=== PATIENT | female | born 1955 | race Caucasian/White ===

== ENCOUNTER → 2023-06-27 10:45 | Outpatient (REF) | payer OTHER, SELFPAY | LOC: HWWDC 10:45 | PROVIDERS: ATTENDING PHYSICIAN Family Medicine | DX: Z12.31 Encounter for screening mammogram for malignant neoplasm of breast (principal) | CPT/HCPCS: 77063; 77067 ==

== ENCOUNTER → 2025-03-25 09:55 | Outpatient (REF) | payer OTHER, SELFPAY | LOC: HWWDC 09:55 | PROVIDERS: ATTENDING PHYSICIAN Family Medicine | DX: Z12.31 Encounter for screening mammogram for malignant neoplasm of breast (principal) | CPT/HCPCS: 77063; 77067 ==